=== PATIENT | male | born 1990 | race Caucasian/White ===

== ENCOUNTER 2018-05-11 23:03 | Inpatient (IN) | payer OTHER ==
[~2018-05-11] VITALS: Ht 175.3 cm; Wt 113.0 kg
[2018-05-11 23:09] VITALS: Ht 175.3 cm; Wt 113.0 kg
[2018-05-12 00:06] LABS: BASOPHIL % 0.3 % (0-2); PLATELET COUNT 138 x10^3mcL (130-400); RED CELL DISTRIBUTION WIDTH 13.8 % (11.5-14.5)
[2018-05-12 00:20] LABS: CALCIUM 8.8 mg/dL (8.5-10.1); CARBON DIOXIDE 27.9 mmol/L (21-32); CHLORIDE SERUM 106 mmol/L (98-107); GFR1 > 60 mL/min; GLUCOSE SERUM 113 mg/dL (74-106); POTASSIUM SERUM 3.7 mmol/L (3.5-5.1); SODIUM SERUM 144 mmol/L (136-145)
[2018-05-12 00:21] LABS: ALKALINE PHOSPHATASE 83 U/L (46-116); ALT/SGPT 24 U/L (16-63); AST/SGOT 18 U/L (15-37); BILIRUBIN TOTAL 0.5 mg/dL (0.20-1.00); LIPASE 153 IU/L (73-393); TOTAL PROTEIN, SERUM 7.4 g/dL (6.4-8.2)
[2018-05-12 02:36] VITALS: BP 128/79
[2018-05-12 02:44] VITALS: BP 113/65
[2018-05-12 02:52] LABS: microscopic required? NO
[2018-05-12 03:23] LABS: UA SPECIFIC GRAVITY >=1.030 (1.005-1.035); urine erythrocyte NEGATIVE (NEGATIVE)
[2018-05-12 03:43] LABS: AMPHETAMINE QUAL UR NONE DETECTED (See below)
[2018-05-12 05:12] LABS: T3 TOTAL 0.96 ng/mL
[2018-05-12 05:13] LABS: MAGNESIUM 1.9 mg/dL (1.8-2.4); PHOSPHOROUS 4.5 mg/dL (2.5-4.9)
[2018-05-12 05:14] LABS: CHOLESTEROL/HDL RATIO 2.3
[2018-05-12 05:29] LABS: FREE T4 1.08 ng/dL (0.76-1.46); FREE THYROXINE INDEX 2.7 ug/dL (1.4-4.5); T4(THYROXINE) 7.7 ug/dL (4.7-13.3)
[2018-05-12 09:43] VITALS: BP 107/50
[2018-05-12 10:29] LABS: BASOPHIL % 0.2 % (0-2); RED CELL DISTRIBUTION WIDTH 13.4 % (11.5-14.5)
[2018-05-12 10:30] LABS: PLATELET COUNT 124 x10^3mcL (130-400)
[2018-05-12 10:41] LABS: CALCIUM 8.5 mg/dL (8.5-10.1); CARBON DIOXIDE 29.8 mmol/L (21-32); CHLORIDE SERUM 106 mmol/L (98-107); CREATININE SERUM 0.9 mg/dL (0.7-1.3); GFR1 > 60 mL/min; GLUCOSE SERUM 95 mg/dL (74-106); SODIUM SERUM 143 mmol/L (136-145)
[2018-05-12 16:53] VITALS: BP 107/56
[2018-05-12 22:27] VITALS: BP 109/55
[2018-05-13] VITALS: BP 101/54; BP 11/54
[2018-05-13 05:45] VITALS: BP 112/52
[2018-05-13 06:12] LABS: BASOPHIL % 0.2 % (0-2); RED CELL DISTRIBUTION WIDTH 13.6 % (11.5-14.5)
[2018-05-13 06:29] LABS: CALCIUM 8.2 mg/dL (8.5-10.1); CARBON DIOXIDE 25.1 mmol/L (21-32); CHLORIDE SERUM 105 mmol/L (98-107); CREATININE SERUM 0.9 mg/dL (0.7-1.3); GFR1 > 60 mL/min; GLUCOSE SERUM 91 mg/dL (74-106); POTASSIUM SERUM 3.9 mmol/L (3.5-5.1); SODIUM SERUM 138 mmol/L (136-145)
[2018-05-13 06:40] LABS: PLATELET COUNT 103 x10^3mcL (130-400)
[2018-05-13 07:05] VITALS: BP 105/45
[2018-05-13 11:40] VITALS: BP 120/64
[2018-05-13 12:54] LABS: CALCIUM 8.2 mg/dL (8.5-10.1); CARBON DIOXIDE 28.5 mmol/L (21-32); CHLORIDE SERUM 104 mmol/L (98-107); CREATININE SERUM 0.9 mg/dL (0.7-1.3); GFR1 > 60 mL/min; GLUCOSE SERUM 121 mg/dL (74-106); SODIUM SERUM 135 mmol/L (136-145)
[2018-05-13 12:59] LABS: ALKALINE PHOSPHATASE 74 U/L (46-116); ALT/SGPT 73 U/L (16-63); AST/SGOT 77 U/L (15-37); BILIRUBIN TOTAL 1.51 mg/dL (0.20-1.00); TOTAL PROTEIN, SERUM 6.5 g/dL (6.4-8.2)
[2018-05-13 16:40] VITALS: BP 105/48
[2018-05-13 20:44] VITALS: BP 99/51
[2018-05-14 05:56] VITALS: BP 101/51
[2018-05-14 06:31] LABS: BASOPHIL % 0.2 % (0-2); RED CELL DISTRIBUTION WIDTH 13.6 % (11.5-14.5)
[2018-05-14 06:52] LABS: PLATELET COUNT 102 x10^3mcL (130-400)
[2018-05-14 06:56] LABS: ALKALINE PHOSPHATASE 65 U/L (46-116); ALT/SGPT 73 U/L (16-63); AST/SGOT 51 U/L (15-37); BILIRUBIN TOTAL 0.72 mg/dL (0.20-1.00); CALCIUM 8.3 mg/dL (8.5-10.1); CARBON DIOXIDE 30.2 mmol/L (21-32); CHLORIDE SERUM 104 mmol/L (98-107); CREATININE SERUM 0.9 mg/dL (0.7-1.3); GFR1 > 60 mL/min; GLUCOSE SERUM 113 mg/dL (74-106); POTASSIUM SERUM 4.1 mmol/L (3.5-5.1); SODIUM SERUM 137 mmol/L (136-145); TOTAL PROTEIN, SERUM 6.3 g/dL (6.4-8.2)
[2018-05-14 07:00] LABS: ALBUMIN 2.8 g/dL (3.4-5.0)
[2018-05-14 09:41] VITALS: BP 117/57
[2018-05-14 17:40] VITALS: BP 117/56
[2018-05-14 21:01] VITALS: BP 107/56
[2018-05-15 06:14] LABS: BASOPHIL % 0.3 % (0-2); RED CELL DISTRIBUTION WIDTH 13.6 % (11.5-14.5)
[2018-05-15 06:17] LABS: CARBON DIOXIDE 27.9 mmol/L (21-32); CHLORIDE SERUM 104 mmol/L (98-107); CREATININE SERUM 0.9 mg/dL (0.7-1.3); GFR1 > 60 mL/min; GLUCOSE SERUM 95 mg/dL (74-106); POTASSIUM SERUM 3.6 mmol/L (3.5-5.1); SODIUM SERUM 139 mmol/L (136-145)
[2018-05-15 06:39] LABS: PLATELET COUNT 103 x10^3mcL (130-400)
[2018-05-15 08:58] VITALS: BP 112/56
[2018-05-15] MEDS ORDERED: IBUPROFEN800 MG PO (12:46)
[2018-05-15] MEDS ORDERED: COLACE100 MG PO (12:46)
[2018-05-15] MEDS ORDERED: PRILOSEC OTC20 M1 PO (12:47)
[2018-05-15] MEDS ORDERED: AUGMENTIN1 TA1 PO (12:48)
[2018-05-15 15:59] VITALS: BP 112/56
== END 2018-05-15 17:18 | disposition home or self-care (01) | DRG 263 ==
LOC: ED 23:03 → MU 05-12 01:19
PROVIDERS: Emergency Medicine; Family Medicine; Surgery
PROC: 0DNU4ZZ Release Omentum, Percutaneous Endoscopic Approach (ICD-10-PCS; 2018-05-13)
PROC: 0FT44ZZ Resection of Gallbladder, Percutaneous Endoscopic Approach (ICD-10-PCS; principal; 2018-05-13 07:30)
DX: K80.00 Calculus of gallbladder with acute cholecystitis without obstruction (principal); E44.0 Moderate protein-calorie malnutrition; D69.6 Thrombocytopenia, unspecified; E66.9 Obesity, unspecified; R74.0 Nonspecific elevation of levels of transaminase and lactic acid dehydrogenase [LDH]; K66.0 Peritoneal adhesions (postprocedural) (postinfection); Z68.36 Body mass index [BMI] 36.0-36.9, adult; Z98.84 Bariatric surgery status; Z90.49 Acquired absence of other specified parts of digestive tract
CPT/HCPCS: 83880; 84439; 94150; J1170; J1885; J2270; J2543; J3010; J3490; J7030; Q0092; Q0162